=== PATIENT | male | born 1930 | race Caucasian/White ===

== ENCOUNTER 2019-10-12 11:08 | Inpatient (IN) ==
[2019-10-12 12:11] LABS: BASO# 0.02 X1000 (0.0-0.2); BASO% 0.2 % (0.0-0.8); EOS# 0.23 X1000 (0.0-0.7); EOS% 2.6 % (0.0-10.0); HEMOGLOBIN 13.5 g/dL (14.0-18.0); LYMPH# 1.79 X1000 (1.2-3.4); LYMPH% 20.6 % (20.5-51.1); MCH 29.9 PG (27-31); MCHC 33.8 g/dL (33-37); MCV 88.5 FL (81-99); MONO# 1.01 X1000 (0.11-0.59); MONO% 11.6 % (1.7-9.3); MPV 10.1 FL (7.4-10.4); NEUT# 5.66 X1000 (1.4-6.5); PLT 230 X1000 (130-400); RBC 4.52 XMIL (4.7-6.1); RDW 14.2 % (11.5-14.5); WBC 8.71 X1000 (4.8-10.8)
--- NOTE | 2019-10-12 12:20 | Diag Imaging Result Doc PS360 ---
EXAM: CHEST-1 VIEW 10/12/2019 HISTORY: sob TECHNIQUE: AP portable upright at 1208 COMMENT: There are sternotomy wires. There is some ill-defined opacity in the left costophrenic angle. There are no previous studies. IMPRESSION: Questionable atelectasis or pneumonia left lower lobe. Electronically signed by Javed Kolb 10/12/2019 12:18 PM
[2019-10-12 12:22] LABS: INR 1.04; PROTIME 13.7 Seconds (11.0-16.0); PTT 25.6 Seconds (22.3-41.8)
--- NOTE | 2019-10-12 12:26 | PROVIDER DOCUMENTATION ---
This chart was entered by Ashia Chavarria Scribe, acting as scribe for Devaughn Graham MD. HPI-General Adult - General Chief Complaint: Near Syncope Stated Complaint: NEAR SYNCOPE Time Seen by Provider: 10/12/19 11:38 Source: patient, family (daughter) Allergies/Adverse Reactions: Patient Allergies Allergy/AdvReac Type Severity Reaction Status Date / Time No Known Allergies Allergy Verified 10/12/19 11:42 Home Medications: Home Medication List Medication Instructions Recorded Confirmed Last Taken Type ATORVAstatin [Lipitor] 40 mg PO DAILY 11/07/14 10/12/19 10/11/19 History Clopidogrel Bisulfate [Plavix] 75 mg PO DAILY 11/07/14 10/12/19 10/12/19 History Aspirin 81 mg PO DAILY 12/23/16 10/12/19 10/12/19 History Calcium Carb/Vitamin D3/Vit K1 1 tab PO DAILY 10/12/19 10/12/19 10/12/19 History [Calcium + D Soft Chewable Tab] Cyanocobalamin [Vitamin B-12] 1 tab PO DAILY 10/12/19 10/12/19 10/12/19 History Iron 1 tab PO DAILY 10/12/19 10/12/19 10/12/19 History Multivitamin [Multivitamins] 1 tab PO DAILY 10/12/19 10/12/19 10/12/19 History Pembrolizumab [Keytruda] 1 dose IV DIRECTED 10/12/19 10/12/19 10/10/19 History Saccharomyces Boulardii [Florastor] 1 tab PO DAILY 10/12/19 10/12/19 10/12/19 History Tamsulosin HCl [Flomax] 1 tab PO DAILY 10/12/19 10/12/19 10/11/19 History - History of Present Illness -Gen Adult Nature of Presenting Problems: 88 yowm presents to the ed with his daughter 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 pt sts he was walking back to his office when he cleared his throat and had acute onset dizziness, sob, pale, confused and fatigue. pt was helped to a chair and after 2 minuted all sx resolved. pt on exam is nontoxic in appearance and all sx resolved Location of Pain/Injury: reports: generalized (weakness) Quality of Pain: reports: other (weakness) Severity: reports: moderate Onset/Duration: reports: just prior to arrival Timing: reports: gone now Context/Activities at Onset: reports: light activity Modifying Factors: improves with: nothing. worse with: coughing Associated Symptoms: reports: cough, diaphoresis, dizziness, fatigue, malaise, shortness of breath, weakness, other (confusion). denies: back/neck pain, chest pain, headaches, nausea, syncope (near syncope), vomiting Similar Symptoms Previously?: No Recently seen or treated by another doctor?: Yes (was seen cardio at [facility] in sep) Review of Systems - Adult - REVIEW OF SYSTEMS - ADULT Constitutional: reports: see HPI, fatique. denies: chills, fever Eyes: reports: no symptoms reported Ears, Nose, Mouth & Throat: reports: no symptoms reported Cardiovascular: denies: chest pain, palpitations, syncope (near syncope) Respiratory: reports: see HPI, cough, dyspnea on exertion, shortness of breath. denies: wheezing Gastrointestinal: denies: abdominal pain, diarrhea, nausea, vomiting Genitourinary: reports: no symptoms reported Musculoskeletal: reports: see HPI, other (generalized weakness) Integumentary: reports: no symptoms reported Neurological: reports: see HPI, dizziness/vertigo, other (confusion). denies: headache/migraines, slurred speech, syncope (near syncope) Psychiatric: reports: no symptoms reported Endocrine: reports: no symptoms reported Hematologic/Lymphatic: reports: no symptoms reported Allergic/Immunologic: reports: no symptoms reported All Other Systems: Reviewed and Negative Past History - Adult - PAST MEDICAL HISTORY-ADULT Review of Records: reports: Old Records Reviewed, Nursing Assessment Review, Medications Reviewed, Social history reviewed & non-contributory. Major Childhood Illnesses: reports: denies history Cardiovascular: reports: CAD, HTN Respiratory: reports: denies history Gastrointestinal: reports: denies history Genitourinary: reports: denies history Musculoskeletal: reports: denies history Neurological: reports: denies history Endocrine/Immune: reports: denies history Other Conditions: reports: denies history Additional History: skin cancer - PRIOR SURGERIES/PROCEDURES Surgical/Procedure History: reports: CABG, cardiac stent - IMMUNIZATION STATUS Childhood Immunizations: See Nurse Assessment Flu Vaccine: See Nurse Assessment - FAMILY HISTORY Family History: reviewed, not pertinent - SOCIAL HISTORY Smoking: denies Substance Use: denies Living Situation: family Physical Exam-General - PHYSICAL EXAM-ADULT Initial Vital Signs Reviewed: Yes - CONSTITUTIONAL General Appearance: appears well, alert, no apparent distress (all sx have resolved) - EYES Eyes: PERRL/EOMI, pink conjunctivae - HEAD, EARS, NOSE, MOUTH & THROAT HENMT: moist mucous membranes, normal ENT inspection - NECK Neck: non-tender, full range of motion, supple, normal inspection - RESPIRATORY Respiratory: chest non-tender, lungs clear, normal breath sounds - CARDIOVASCULAR Cardiovascular: normal peripheral pulses, regular rate, rhythm - CHEST (BREASTS) Chest/Breast: deferred - GASTROINTESTINAL (ABDOMEN) Abdominal Exam: normal bowel sounds, non tender, soft - GENITOURINARY Male Genitalia: deferred Rectal Exam: deferred Hemoccult Exam: deferred - LYMPHATIC Lymphatic: no adenopathy - MUSCULOSKELETAL Back Exam: no CVA tenderness, no vertebral tenderness Extremity: normal range of motion, non-tender, normal inspection, normal capillary refill - SKIN Integumentary: normal color, normal turgor, warm/dry - NEUROLOGIC Neurologic: census taker II-XII nml as tested - PSYCHIATRIC Psych/Mental Status: normal mood/affect, normal thought content, normal thought process, oriented x 3 Progress - PLAN OF CARE/RESULTS Progress/Plan/Lab Results: Vital Signs - 8 hr 10/12/19 11:08 Temperature 98.3 F Pulse Rate 62 Respiratory Rate 20 Blood Pressure 129/71 O2 Sat by Pulse Oximetry 98 Result Diagrams: 10/12/19 11:28 10/12/19 11:28 - EKG 1 Time of EKG reading by physician:: 12:45 EKG Read and Signed by:: Devaughn Graham EKG Interpretation (*Must complete 3 of following elements*): Abnormal Rate: 58 Rhythm: sinus bradycardia [place]: normal QRS: other (RSR or QR pattern in V! suggest right ventricular conduction delay) [place] Interval: normal ST Wave: normal - XRAY 1 XRAY: Bilateral XRAY Study: Chest Impression: See EMR Report (EXAM: CHEST-1 VIEW 10/12/2019 HISTORY: sob TECHNIQUE: AP portable upright at 1208 COMMENT: There are sternotomy wires. There is some ill-defined opacity in the left costophrenic angle. There are no previous studies. IMPRESSION: Questionable atelectasis or pneumonia left lower lobe. Electronically signed by Javed Kolb 10/12/2019 12:18 PM 10/12/19 1218 Interpreting Physician: Javed Kolb MD Dictated Date/Time: 10/12/19 1216 cc: Devaughn Graham MD; Robert Dumont) - CT/MRI 1 CT Study: Head Impression: See EMR Report (EXAM: CT HEAD W/O CONTRAST 10/12/2019 HISTORY: near syncope, dizziness TECHNIQUE: This exam was performed using automated exposure control, adjustment of mA or kV according to patient size, and/or use of iterative reconstruction technique. COMMENT: There are calcifications in the vertebral and internal carotid arteries. There are calcifications in the globus pallidus bilaterally. There is no evidence of mass effect, bleed, or abnormal extra-axial fluid collection. There are some patchy lucencies in the periventricular white matter bilaterally. The visualized paranasal sinuses are clear. There are metallic clips in the soft tissues superficial to the right side of the occipital bone. IMPRESSION: Chronic ischemic microvascular changes. No evidence of acute intracranial disease. Electronically signed by Javed Kolb 10/12/2019 1:10 PM 10/12/19 1310 Interpreting Physician: Javed Ferguson MD Dictated Date/Time: 10/12/19 1308 cc: Devaughn Graham MD; Robert Dumont) - CONSULTS/PCP/HOSPITALIST Notification #1 *Consult/PCP/Hospitalist*: hospitalist Time Discussed: 13:46 (spoke with torrey) Consult Disposition: Will see in ED, Admit Departure - Departure Date of Disposition Decision: 10/12/19 Time of Disposition Decision: 13:48 DIAGNOSIS: Near syncope, Pneumonia Disposition: ADMITTED INPATIENT 09 Certified Medical Emergency: Emergent Condition: Fair Referrals and Follow-Ups: Robert Dumont [Primary Care Provider] - - Critical Care Note This patient required my direct & personal management of CC.: No Attestation - Physician/ ALLAN Attestation Patient care was provided by Advanced Practice Provider:: No The physician spent face to face time with patient:: Yes Advanced Practice Provider documentation review:: Supervising physician onsite and consulted in the evaluation and care of this patient. The physician did have a face to face encounter with the patient. This chart was documented by the indicated scribe, (Ashia Chavarria, Faiza) and accurately reflects the services I performed and decisions made by me, Devaughn Graham MD, as attested by the provider's signature.
[2019-10-12 12:56] LABS: AGAP 12; ALB/GLOB RATIO 1.2; ALBUMIN 3.6 g/dL (3.5-5.0); ALKALINE PHOSPHATASE 78 U/L (32-122); BUN 20 mg/dL (8-22); CHLORIDE 103 mmol/L (98-107); COSMO 278; CREATININE 0.8 mg/dL (0.7-1.2); ESTIMATED GFR > 60; GLUCOSE 100 mg/dL (70-104); GOT 16 U/L (10-34); GPT 13 U/L (10-44); POTASSIUM 4.4 mmol/L (3.5-5.1); SODIUM 138 mmol/L (136-145); TCO2 23 mmol/L (25-35); TOTAL BILIRUBIN 0.39 mg/dL (0.20-1.00); TOTAL PROTEIN 6.5 g/dL (6.3-8.3)
--- NOTE | 2019-10-12 13:08 | EKG Report ---
Test Performed on : 10/12/2019 12:45:18 PM Test Reason : sob, near syncope Blood Pressure : / mmHG Vent. Rate : 058 BPM Atrial Rate : 058 BPM P-R Int : 186 ms QRS Dur : 122 ms QT Int : 434 ms P-R-T Axes : 070 019 -20 degrees QTc Int : 426 ms Sinus bradycardia. RSR' or QR pattern in V1 suggests right ventricular conduction delay Possible Inferior infarct , age undetermined Abnormal ECG No previous ECGs available Unconfirmed Result
--- NOTE | 2019-10-12 13:12 | Diag Imaging Result Doc PS360 ---
EXAM: CT HEAD W/O CONTRAST 10/12/2019 HISTORY: near syncope, dizziness TECHNIQUE: This exam was performed using automated exposure control, adjustment of mA or kV according to patient size, and/or use of iterative reconstruction technique. COMMENT: There are calcifications in the vertebral and internal carotid arteries. There are calcifications in the globus pallidus bilaterally. There is no evidence of mass effect, bleed, or abnormal extra-axial fluid collection. There are some patchy lucencies in the periventricular white matter bilaterally. The visualized paranasal sinuses are clear. There are metallic clips in the soft tissues superficial to the right side of the occipital bone. IMPRESSION: Chronic ischemic microvascular changes. No evidence of acute intracranial disease. Electronically signed by Javed Kolb 10/12/2019 1:10 PM
[2019-10-12 13:22] LABS: URINE SOURCE CLEAN CATCH
[2019-10-12 13:25] LABS: BILIRUBIN URINE NEGATIVE (NEGATIVE); BLOOD URINE NEGATIVE (NEGATIVE); COLOR YELLOW; GLUCOSE URINE NEGATIVE (NEGATIVE); KETONE URINE NEGATIVE (NEGATIVE); LEUKOCYTES URINE NEGATIVE (NEGATIVE); NITRITE URINE NEGATIVE (NEGATIVE); PH URINE 5.5; PROTEIN URINE TRACE mg/dL (NEGATIVE); SP GRAVITY URINE 1.022; TURBIDITY URINE CLEAR (CLEAR); UROBILINOGEN URINE NORMAL (NORMAL)
[2019-10-12 13:29] LABS: UR EPITHELIAL CELLS <10 /HPF (<10); URINE BACTERIA NEGATIVE /HPF; URINE RBC <10 /HPF (<10); URINE WBC <10 /HPF (<10)
[2019-10-12] MEDS ORDERED: ROCEPHIN 1 GM in NS 50 ML IV ONE (13:47)
[2019-10-12] MEDS ORDERED: NS 1,000 ML IV SCH (14:36)
[2019-10-12] MEDS ORDERED: TYLENOL PO PRN (14:36)
[2019-10-12] MEDS ORDERED: PEMBROLIZUMAB IV SCH (14:45)
[2019-10-12] MEDS ORDERED: DUONEB (A & A) INH SCH (16:00)
--- NOTE | 2019-10-12 17:20 | HISTORY AND PHYSICAL ---
PRIMARY CARE PROVIDER: Dr. Dumont in [place]. PRIMARY ONCOLOGIST: Dr. Araujo PAST MEDICAL HISTORY: 1. 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 It was a spontaneous thing. It was not antibiotic induced. 2. 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 Araujo. He has had an excision, and he is on Keytruda and IVIG. 3. CAD, no PA, with a CABG in 1997. 4. BPH. PAST SURGICAL HISTORY: 1. CABG in 1997. 2. Cardiac stent. 3. Melanoma on the head removed. SOCIAL HISTORY: Denies tobacco. Only drinks wine about once a month. He lives alone, but his of 65 years lives at [facility]. She has dementia and he visits her daily. CHIEF COMPLAINT: Nearly passing out. HISTORY OF PRESENT ILLNESS: Mr. Mike Eng is an 88-year-old male with a medical history of Clostridium difficile, melanoma with lymph node involvement, coronary disease who states essentially he has had no energy since last year. It has just progressively gotten worse. This morning around 9 o'clock, he felt like he had something in his throat, went to cough it out, got dizzy, nearly passed out, but did not fully pass out. He comes here with these complaints, and a head CT was negative, but a chest x-ray showed a questionable left lower lobe pneumonia. However, his vital signs are stable. He does not have a fever, and his white count is also normal, but given the symptoms, we will go ahead and give him some antibiotics for that. We will try to get a sputum, but he is not really coughing any colors up. We will get an echocardiogram to evaluate the possible cause for syncope or near syncope. PAST MEDICAL HISTORY: Again, 1. Clostridium difficile x3, starting around November 2018, spontaneous in nature, was not antibiotic induced, went away when he started probiotics. 2. Melanoma with lymph node involvement in throat and chest, but I believe he is in remission. He is on Keytruda, getting IVIG, followed by Dr. Araujo. 3. Coronary artery disease. No heart attack. He had CABG in 1997. 4. BPH. PAST SURGICAL HISTORY: Again, 1. Coronary artery bypass grafting in 1997. 2. Cardiac stents. 3. Melanoma excision on the head. SOCIAL HISTORY: Again, denies tobacco. He drinks wine about once a month. His of 65 years currently lives in [facility]. He visits her daily, but currently he lives at home alone. FAMILY HISTORY: Mother heart attack, father heart attack. ALLERGIES: No known drug allergies. HOME MEDICATIONS: 1. Aspirin 81 mg p.o. daily. 2. Vitamin D once daily. 3. Flomax 0.4 mg p.o. daily. 4. Florastor once daily. 5. Iron 18 mg p.o. daily. 6. Keytruda. 7. Lipitor 40 mg p.o. daily. 8. Multivitamin 1 tablet p.o. daily. 9. Plavix 75 mg p.o. daily. 10. Vitamin B12 at 500 mcg p.o. daily. REVIEW OF SYSTEMS: A 14-point review of systems are complete, and all were negative for those mentioned above in the HPI. PHYSICAL EXAMINATION: VITAL SIGNS: Temperature 98.3 degrees, heart rate 58, respiratory rate 18, blood pressure 152/74, and O2 saturation 97% on room air. He is 5 feet 10 inches tall 175 pounds. BMI is 25.1. GENERAL: Mr. Mike Eng Jr is an 88-year-old male. He is in no acute distress. He is able to answer questions appropriately. HEENT: Atraumatic, normocephalic. Pupils equal, round, reactive to light. Extraocular movements intact. Mucous membranes are moist. NECK: Trachea midline. CARDIOVASCULAR: S1 and S2. Regular rate and rhythm. No rubs, gallops, murmurs. No lower extremity edema. There are +2 dorsalis and radial pulses. Negative JVD or carotid bruits. PULMONARY: Clear to auscultation bilateral breath sounds. No accessory muscle use or work of breathing noted. GASTROINTESTINAL: Soft, nontender, nondistended. Positive bowel sounds x4. EXTREMITIES: Moves all extremities equally. Full range of motion. NEUROLOGIC: Alert and oriented x3. Follows commands. Sensory is intact. SKIN: Warm, dry, intact. LABORATORY DATA: White blood cells 8000, hemoglobin 13, hematocrit 40, platelet count 230,000. INR is 1.04. Sodium 138, potassium 4.4, BUN 20, creatinine 0.8, glucose 100, calcium is 9, bilirubin 0.39, AST 16, ALT 13, troponin 19, proBNP 329. Albumin is 3.6. Urinalysis trace protein. IMAGING: Head CT, chronic ischemic microvascular changes. No acute disease. Chest x-ray, questionable atelectasis or pneumonia of the left lower lobe. EKG sinus bradycardia, rate was 58. QTc is 426. It does say there is a RSR or QR pattern in V1 suggesting right ventricular conduction delay. ASSESSMENT AND PLAN: 1. Near syncope. I will put him on telemetry, get a echocardiogram, and monitor overnight on telemetry and vital signs as well. If we need to, we can get a carotid ultrasound. 2. Possible left lower lobe pneumonia. However, there is no fever. There is no white count. He is not coughing up any colors, but occasionally feels like he has to clear his throat. He has been feeling more fatigued, so we will go ahead and treat him with Rocephin. 3. History of melanoma with lymph node involvement on Keytruda. He has been followed by Dr. Araujo. 4. History of coronary artery disease and coronary artery bypass grafting, but denies any chest pain. 5. Benign prostatic hypertrophy. Continue home medication for that. 6. Deep venous thrombosis prophylaxis. Sequential compression devices. Dictated by SETH Alvarenga for Chino Be MD cc: SETH Alvarenga MD I agree with most components of history, physical, assessment and plan. A separate addendum has been dictated. [facility]
[2019-10-12] MEDS: DUONEB (A & A) INH PRN ×2 (18:25→22:22)
--- NOTE | 2019-10-12 18:56 | HISTORY AND PHYSICAL ---
ADDENDUM: This is an addendum to History and Physical by nurse practitioner. I agree with most components of history, physical, assessment and plan. In brief, Mr. Eng is an 88-year-old man who came in after an episode of near syncope at work. The patient states that he has been having symptoms of dizziness after changing body position, which has been ongoing since a few weeks. Today morning, when he was coming back from the bathroom, he suddenly started feeling dizzy and was about to fall down. He became pale and diaphoretic, so decided to come to the hospital. He denies any chest pain. He has been having a runny nose, need to clear the throat, and some dry cough since last week or 10 days. He denies any fevers or chills. VITAL SIGNS: Temperature 98.4 degrees, pulse 59, respiratory rate 16, blood pressure 138/66, saturating 98% room air. PHYSICAL EXAMINATION: LUNGS: Air entry bilaterally equal. No wheeze, rhonchi, crackles. HEART: S1 normal. No murmur or gallop. ORAL CAVITY: Moist. No pharyngeal congestion. ABDOMEN: Soft, nontender. EXTREMITIES: Mild bilateral lower extremity edema. SKIN: He has previous melanoma resection on the scalp. LABORATORY: Hemoglobin of 13.5, WBC 8000. Potassium 4.4, sodium 138, BUN 20, creatinine 0.8. Urinalysis unremarkable. Blood cultures were collected. Chest x-ray had questionable infiltrate, atelectasis in left lower lobe. ASSESSMENT: 1. Near syncope. Differential includes symptomatic bradycardia or cardiac arrhythmia, hypoglycemia, orthostatic hypotension, and left lower lobe pneumonia. 2. History of coronary artery disease, status post coronary artery bypass grafting in 1997. 3. History of recurrent Clostridium difficile infections. 4. History of melanoma with humza metastasis, on every 3 week Keytruda. PLAN: 1. I will stop antibiotics. 2. I will repeat chest x-ray imaging two-view tomorrow. 3. I will keep him on data transcriber. 4. I will get orthostatic vital signs. 5. I will give him intravenous fluids. 6. I will also follow up with echocardiogram. 7. Plan of care discussed with the patient and his daughter. All of their questions have been satisfactorily answered. I will keep patient on monitored unit. cc: Chino Be MD
--- NOTE | 2019-10-12 22:42 | ECHO REPORT ---
ORDER DATE: 10/12/2019 MEASUREMENTS: Septal thickness 1.0, left ventricular internal end-diastolic 5.3, posterior wall thickness 1.0, left ventricular internal diameter end-systole 3.8, aortic root 3.6, left atrium 3.5. SUMMARY: 1. Adequate quality study. 2. Aortic valve is trileaflet and demonstrates mild sclerotic change with adequate opening evident on 2-dimensional images. The peak gradient across the aortic valve is 12 mmHg. There is very mild aortic regurgitation. Mitral, tricuspid, and pulmonic valves are without evidence of structural abnormality with very mild mitral regurgitation, trace tricuspid regurgitation, and mild pulmonic insufficiency. The estimated systolic PA pressure by Doppler is 25 to 30 mmHg. The aortic root is normal in size. 3. Normal left ventricular dimension is demonstrated. The estimated left ventricular ejection fraction appears to be at least 65%. No regional wall motion abnormalities evident. Left atrium, right atrium and right ventricle are normal in size with preserved right ventricular systolic function. 4. No pericardial effusion. 5. Appearance of inferior vena cava suggests normal central venous pressure. cc: MD Missy Nicole CRNP
--- NOTE | 2019-10-13 08:19 | Diag Imaging Result Doc PS360 ---
EXAM: CHEST-2 VIEWS HISTORY: Pneumonia TECHNIQUE: Two views COMPARISON: 10/12/2019 FINDINGS: The lungs are well expanded. The heart is not enlarged. There are sternal wires. The vessels are not distended. There are mild increased interstitial markings in the left base. No consolidation.. No pleural effusions. Prominent atherosclerosis. There is cement within a mid thoracic vertebra. Right-sided granuloma. IMPRESSION: Interval improvement Electronically signed by Fidencio Daily 10/13/2019 8:17 AM
[2019-10-13 08:20] LABS: BASO# 0.03 X1000 (0.0-0.2); BASO% 0.4 % (0.0-0.8); EOS# 0.16 X1000 (0.0-0.7); EOS% 1.9 % (0.0-10.0); HEMATOCRIT 38.5 % (42.0-52.0); HEMOGLOBIN 13.1 g/dL (14.0-18.0); IMM GRAN# 0.03 X1000 (0.0-0.04); IMM GRAN% 0.4 % (0.0-0.5); LYMPH# 1.51 X1000 (1.2-3.4); LYMPH% 18.1 % (20.5-51.1); MCV 88.3 FL (81-99); MONO# 0.93 X1000 (0.11-0.59); MONO% 11.1 % (1.7-9.3); MPV 10.1 FL (7.4-10.4); NEUT% 68.1 % (42.2-75.2); PLT 247 X1000 (130-400); RBC 4.36 XMIL (4.7-6.1); RDW 14.1 % (11.5-14.5); WBC 8.36 X1000 (4.8-10.8)
[2019-10-13] MEDS ORDERED: ROCEPHIN 1 GM in NS 50 ML IV SCH (09:00)
[2019-10-13] MEDS ORDERED: PLAVIX PO SCH (09:00)
[2019-10-13] MEDS ORDERED: THERA M PLUS PO SCH (09:00)
[2019-10-13] MEDS ORDERED: FLOMAX PO SCH (09:00)
[2019-10-13] MEDS ORDERED: CALTRATE 600 + D PO SCH (09:00)
[2019-10-13] MEDS ORDERED: FERROUS SULFATE PO SCH (09:00)
[2019-10-13] MEDS ORDERED: VITAMIN B-12 PO SCH (09:00)
[2019-10-13] MEDS ORDERED: ASPIRIN PO SCH (09:00)
[2019-10-13] MEDS ORDERED: FLORASTOR PO SCH (09:00)
[2019-10-13 09:18] LABS: AGAP 11; ALBUMIN 3.3 g/dL (3.5-5.0); ALKALINE PHOSPHATASE 70 U/L (32-122); BUN 15 mg/dL (8-22); CALCIUM 8.8 mg/dL (8.8-10.2); CHLORIDE 107 mmol/L (98-107); COSMO 280; CREATININE 0.9 mg/dL (0.7-1.2); ESTIMATED GFR > 60; GLUCOSE 95 mg/dL (70-104); GOT 17 U/L (10-34); GPT 12 U/L (10-44); POTASSIUM 4.2 mmol/L (3.5-5.1); SODIUM 140 mmol/L (136-145); TCO2 22 mmol/L (25-35); TOTAL BILIRUBIN 0.45 mg/dL (0.20-1.00); TOTAL PROTEIN 6.6 g/dL (6.3-8.3)
[2019-10-13 15:23] VITALS: BP 115/62
[2019-10-13] MEDS ORDERED: LIPITOR PO SCH (21:00)
--- NOTE | 2019-10-13 21:33 | DISCHARGE SUMMARY ---
ADMISSION DATE: 10/12/2019 DISCHARGE DATE: 10/13/2019 DISCHARGE DISPOSITION: Home. DISCHARGE CONDITION: Hemodynamically stable. He is alert and oriented x3. He was able to go to the bathroom without having any dizziness. I discussed with his daughter at bedside about orthostatic hypotension, need to remain in a body position for at least 2 minutes. If he is lying down, he needs to get up and remain in that position for 2 minutes before starting to walk and I provided general instructions about orthostatic hypotension. I also discussed with him about possibly tamsulosin contributing to it and he was advised to have a discussion with his regular physician about stopping it as necessary. DISCHARGE DIAGNOSES: 1. Near syncope likely due to orthostatic hypotension. 2. Orthostatic hypotension, which could be related to tamsulosin. 3. Left lower lobe infiltrate, likely due to atelectasis. OTHER DIAGNOSES: 1. History of benign prostatic hypertrophy. 2. 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 3. History of coronary artery disease status post CABG in 1997. 4. History of recurrent C. difficile infection in 2018. DISCHARGE MEDICATIONS: Aspirin 81 mg daily, calcium 1 tablet daily, saccharomyces boulardii or Florastor 250 mg capsule daily, iron 1 tablet daily, Keytruda 1 dose IV every 3 weeks, Atorvastatin 40 mg daily, multivitamin 1 tablet daily, clopidogrel 75 mg daily, vitamin B12 500 mcg daily, tamsulosin 0.4 mg daily. He was advised to have a discussion with his regular physician about stopping this medication and starting on alternative medication as tolerated. VITALS: At the time of discharge, temperature 97.9 degrees, pulse 68, respiration 19, blood pressure 115/62, saturating 94% on room air. PHYSICAL EXAMINATION: He is not in acute distress. Oral cavity is moist. Air entry bilaterally equal. No wheeze, rhonchi, crackles. Cardiovascular: S1, S2 normal. No murmur, rub, or gallop. Abdomen: Soft, nontender. He was alert and oriented x3. LABS: At the time of discharge, WBC 8000, hemoglobin 13.1, platelet 247,000, BUN 15, creatinine 0.9. MICROBIOLOGY: Influenza screen was negative. Blood cultures are in lab. Prelim data did not have any growth. SIGNIFICANT IMAGIN. Chest x-ray on presentation had a questionable atelectasis or pneumonia of the left lower lobe, however repeat chest x-ray almost 24 hours later had interval improvement. She was not started on antibiotics considering her C. difficile. 2. Echocardiogram had ejection fraction of 65% without any regional wall motion abnormalities. 3. Head CT had chronic ischemic microvascular changes without evidence of acute intracranial disease. Electrocardiogram had sinus bradycardia with a right ventricular conduction delay, possible inferior infarct, age undetermined. HOSPITAL COURSE SUMMARY: Mr. Eng is 88 years old man with past medical history of metastatic melanoma and recurrent C. difficile infection who also had history of coronary artery disease with CABG in 1997, as well as benign prostatic hypertrophy, who came in with chief complaints of nearly passing out. The patient used to work full-time and in his office when he was coming out of the bathroom, he started feeling dizzy and was almost going to fall down, but his colleagues there helped him and he was helped sit in the chair. The entire episode lasted about couple of minutes. He turned cook during the episode and was diaphoretic. However, within 2 minutes he regained his senses and he was alert and oriented x3. However, considering his episode, he was sent to the emergency room. In the emergency room, he was hemodynamically stable. His orthostatic vitals were positive where his blood pressure decreased from 140 on supine position to 111 on standing up position. His heart rate also increased from 70 to 100 on standing up position from supine. Considering his orthostatic vitals, he was started on intravenous fluid resuscitation and was monitored through telemetry. With intravenous fluid resuscitation, patient's clinical condition improved, though his orthostatic vitals the next day was positive. He was not having any symptoms. His telemetry did not have any event. His echocardiogram was normal, so it was decided to discharge him. He was provided with detailed discharge instruction with his daughter at bedside about orthostatic vitals. One of the home medications named tamsulosin was thought to be at least a contributing factor alongside with his age. He was advised to have a discussion with his regular physician about stopping it and considering to change it to a different medication. Less than 30 minutes of time was spent discharging the patient. Plan of care discussed with his daughter. His questions have been answered. cc: Chino Be MD
== END 2019-10-13 16:32 | disposition home or self-care (01) | DRG 312 ==
LOC: SUPCPDRO → ED 11:08 → EDUNIT# 11:08 → EDBD 11:08 → EDIPHOLD 15:36 → 3N 19:49
PROVIDERS: ATTEND Internal Medicine